=== PATIENT | male | born 1985 | race Caucasian/White ===

== ENCOUNTER 2018-05-22 09:21 | Emergency (ER) | payer MEDICAID, SELFPAY ==
[2018-05-22 09:22] VITALS: BP 145/83; PULSE 85; RESP 18; TEMP 36.6; O2SAT 100; BMI 24.4
--- NOTE | 2018-05-22 09:40 | ED.VISSUMM ---
- ER Visit Summary Date of Service: 05/22/18 Chief Complaint: Dysuria and discharge History of Present Illness: The patient is a 33 M with a history of recurrent dysuria and mild penile discharge. STD testing has been negative in the past. He denies any lesions. He has been with one social partner for the past 8 years and her testing has been negative as well. Patient states he got recurrent symptoms a couple days ago. Physical Examination: Blood pressure is 145/83, otherwise normal. Patient sitting at bedside no acute distress. Heart is regular rate and rhythm. Lung sounds are clear. Abdomen is soft nontender. Test Results: Urinalysis returns with glucose in the urine but no sign of infection. BG T was then obtained and is only 66. Patient did have gonorrhea and chlamydia test sent that are still pending. Emergency Department Course and Treatment: Test results were discussed with the patient. He will be given Rocephin and Zithromax prophylactically. I encouraged follow-up with urology as this is a recurring issue with negative testing in the past. Treatment Plan: [] Disposition: Discharge Impression: Urethritis This note was generated with [employer] dictation software. It may contain incorrect words, spelling, and punctuation that were not noted in review of the chart prior to signing ED Disposition - Plan for ED Patient: Chief Complaint: Complaint Referrals: Care Physician,No Primary [Primary Care Provider] -
[2018-05-22 09:54] LABS: Bacteria 0 SEEN /hpf (None Seen); Mucous, Urine 0 SEEN /hpf (<or=2+); Red Blood Cells-Urine 0 SEEN /hpf (0-5); Squamous Epithelial Cells - UA 0 SEEN /hpf (0-5); White Blood Cells 0 SEEN /hpf (0-5)
[2018-05-22 09:56] LABS: Color, Urine Yellow (Yellow); Glucose, Dipstick 100 mg/dl (Normal); Ketone-Dipstick Negative (Negative); Leukocyte Esterase-Dipstick Negative /ul (Negative); Nitrite-Dipstick Negative (Negative); Occult Blood-Urine Negative /ul (Negative); Protein-Dipstick Negative (Negative); Urine Bilirubin Dipstick Negative (Negative); Urine Clarity Sl. Cloudy (Clear); Urine Urobilinogen Normal (Normal)
[2018-05-22 10:25] VITALS: BP 165/87; PULSE 101; RESP 15; O2SAT 100
--- NOTE | 2018-05-22 10:29 | ED.DEP ---
ED Disposition - Plan for ED Patient: Disposition: Home or Assisted Living Chief Complaint: Complaint Instructions: ED Urethritis Infec Vs Inflam Male Referrals: Carlitos Nova MD [STAFF PHYSICIAN] - As soon as possible
[2018-05-22 10:31] LABS: Bedside Glucose 66 mg/dL (70-110)
[2018-05-22] MEDS: Ceftriaxone 500 MG Vial 250 MG IM (10:59)
[2018-05-22] MEDS: Azithromycin 250 MG Tablet 1000 MG PO (10:59)
[2018-05-22 11:13] VITALS: RESP 18
[2018-05-22 11:25] LABS: Chlamydia Trachomatis by PCR Negative (Negative); Neisserai gonorrhoeae by PCR Negative (Negative); Probe Check PASS; Sample Adequacy Control PASS; Specimen Processing Control PASS
--- NOTE | 2018-05-22 14:35 | ED.RN ---
Pt called in for STD results. He was informed the results were negative.
== END 2018-05-22 11:13 | disposition home or self-care (01) ==
PROVIDERS: Emergency Provider Emergency Medicine
DX: N34.2 Other urethritis (principal); Z72.0 Tobacco use
CPT/HCPCS: 81001; 82962; 87086; 87491; 87591; 96372; 99282